=== PATIENT | male | born 1955 | race Caucasian/White ===

== ENCOUNTER 2023-11-12 11:52 | Inpatient (IN) | payer MEDICARE, SELFPAY ==
[2023-11-12 11:53] VITALS: BP 142/72; PULSE 80; RESP 18; TEMP 36.6; O2SAT 95
--- NOTE | 2023-11-12 12:16 | US_ITS ---
STUDY: SCROTUM ULTRASOUND REASON FOR EXAM: Male, 68 years old. testicular pain TECHNIQUE: Ultrasound evaluation of the scrotum was performed with color Doppler and static dangelo-scale imaging. COMPARISON: None. FINDINGS: RIGHT TESTICLE INTRATESTICULAR: There is a normal size of the right testicle. The right testicle measures 4.4 x 3.0 x 2.3 cm. There is a homogenous echotexture. There is normal arterial and normal venous vascularity. There is no demonstrated right testicular mass or cyst. EXTRATESTICULAR: The epididymis is normal in size. The epididymis head measures 1.3 cm. There is normal vascularity of the epididymis. There is no demonstrated epididymal cystic structure. There is no demonstrated hydrocele. There is no demonstrated varicocele. There is no demonstrated extratesticular mass or cyst. LEFT TESTICLE INTRATESTICULAR: There is a normal size of the left testicle. The left testicle measures 3.7 x 2.9 x 2.1 cm. There is a homogenous echotexture. There is normal arterial and normal venous vascularity. There is no demonstrated left testicular mass or cyst. EXTRATESTICULAR: The epididymis is normal in size. The epididymis head measures 1.5 cm. There is increased (hyperemic) vascularity of the epididymis. There is no demonstrated epididymal cystic structure. There is a small hydrocele. There is no demonstrated varicocele. There is no demonstrated extratesticular mass or cyst. US/Testicular with Arterial Flow IMPRESSION: Normal bilateral testicles, no sonographic evidence of intratesticular mass or torsion. Hyperemia on the left epididymis suggests epididymitis. Small left hydrocele Electronically Signed: Pavan Avila MD at 14:22 EDT ,
--- NOTE | 2023-11-12 12:39 | EX.ED.GUMALE ---
HPI <DENISE Waters - Last Filed: 11/12/23 16:12> History of Present Illness Chief Complaint: Male Pain/Injury Narrative Narrative: Patient is a 68-year-old male with history of dementia, hypertension hyperlipidemia who presents to the emergency department left-sided testicular pain and swelling. Patient states today, it started to be very painful to the touch, got more red and swollen. He states is significantly larger than the right testicle. Patient denies any fever or chills. Denies any difficulty urinating. [facility] <DENISE Waters - Last Filed: 11/12/23 16:12> [facility] Medical History (Updated 11/12/23 @ 16:12 by DENISE Waters) Dementia High cholesterol Hypertension Home Medications atorvastatin 40 mg tablet 40 mg PO QHS 11/12/23 [History Last Taken Unknown] donepezil 10 mg tablet 10 mg PO QHS 11/12/23 [History Last Taken Unknown] lisinopril 10 mg tablet 10 mg PO DAILY 11/12/23 [History Last Taken Unknown] memantine 5 mg tablet 5 mg PO QHS 11/12/23 [History Last Taken Unknown] Allergy/AdvReac Type Severity Reaction Status Date / Time No Known Allergies Allergy Verified 11/12/23 11:53 Social History Smoking Status: Never smoker ROS <DENISE Waters - Last Filed: 11/12/23 16:12> ROS ED ROS Narrative Constitutional: Negative for fever, chills, weight loss, weakness Eyes: Negative for vision loss, vision change, double vision ENT: Negative for any sore throat, ear pain, congestion Cardiovascular: Negative for any chest pain, tightness, palpitations Respiratory: Negative for any cough, sputum production, hemoptysis, dyspnea, dyspnea on exertion, orthopnea Gastrointestinal: Negative for any abdominal pain, nausea, vomiting, diarrhea, constipation, blood in stool, blood in vomit : Negative for any urinary frequency, dysuria, retention, blood in urine. Positive for left-sided testicular pain and swelling Muscle skeletal: Negative for any neck pain, back pain Neurological: Negative for any headache, syncope, dizziness Skin: Negative for any rashes, itching, abrasions, lacerations Psychiatric: Negative for any depression, anxiety, stress, suicidal ideation, homicidal ideation Hematologic: Negative for any excessive bruising, easy bleeding EXAM <Ridge AdameDENISE medel - Last Filed: 11/12/23 16:12> Physical Exam Narrative Exam Narrative: Vital signs reviewed. HEET: Head normocephalic atraumatic, TMs clear bilaterally. Posterior pharynx is clear, moist mucous membranes. Nares clear bilaterally. Neck: Supple with no lymphadenopathy or tenderness. No signs of meningismus. Cardiac: Regular rate and rhythm no murmurs gallops or rubs, equal peripheral pulses bilaterally. Respiratory: Lungs clear to auscultation bilaterally. No chest tenderness. Abdomen: Soft, nontender, nondistended. No abdominal bruit or pulsatile masses. No hepatosplenomegaly Extremities: No peripheral edema, no signs of gross trauma or deformity. Active full range of motion of all extremities. Neuro: Cranial nerves II through XII intact, no focal neurological deficits. Skin: Clean dry and intact with no rash, purpura, petechiae, vesicles or pustules. Backs/flank: No CVA tenderness, no midline spinal tenderness, no deformity. Psych: Normal mood and affect. No SI, HI or acute psychosis. Testicular: Testicular exam does show some erythema, tenderness to the left testicle. Patient does have 2 areas of pain, epididymis was tender. There is no significant cellulitis, no abscess formation, no evidence of any Kierra's gangrene. Const Vital Signs: 11/12/23 11:53 11/12/23 13:53 11/12/23 15:00 Temperature 97.8 F Temperature Source Temporal Pulse Rate 80 67 80 Respiratory Rate 18 16 16 Blood Pressure 142/72 H 124/69 H 140/70 H Blood Pressure Mean 95 87 93 Pulse Ox 95 95 99 Oxygen Delivery Method Room Air Room Air Room Air 11/12/23 16:18 Temperature 98.6 F Temperature Source Pulse Rate 70 Respiratory Rate 16 Blood Pressure 134/71 H Blood Pressure Mean 92 Pulse Ox 96 Oxygen Delivery Method <Dr. Hebert Degroot DO - Last Filed: 11/12/23 16:52> Physical Exam Const Vital Signs: 11/12/23 11:53 11/12/23 13:53 11/12/23 15:00 Temperature 97.8 F Temperature Source Temporal Pulse Rate 80 67 80 Respiratory Rate 18 16 16 Blood Pressure 142/72 H 124/69 H 140/70 H Blood Pressure Mean 95 87 93 Pulse Ox 95 95 99 Oxygen Delivery Method Room Air Room Air Room Air 11/12/23 16:18 Temperature 98.6 F Temperature Source Pulse Rate 70 Respiratory Rate 16 Blood Pressure 134/71 H Blood Pressure Mean 92 Pulse Ox 96 Oxygen Delivery Method [facility] <Ridge DavisDENISE - Last Filed: 11/12/23 16:12> [facility] Lab Data Labs: Laboratory Results - last 24 hr 11/12/23 11/12/23 11/12/23 12:42 12:50 15:15 WBC 22.1 H RBC 4.40 L Hgb 12.3 L Hct 37.8 L MCV 85.9 MCH 28.0 MCHC 32.5 RDW Std Deviation 41.1 RDW Coeff of Leila 13.2 Plt Count 279 MPV 8.6 Immature Gran % (Auto) 0.700 Neut % (Auto) 78.6 H Lymph % (Auto) 9.0 L [place] % (Auto) 11.2 H Eos % (Auto) 0.3 Baso % (Auto) 0.2 Absolute Neuts (auto) 17.3 H Absolute Lymphs (auto) 1.98 Nucleated RBC % 0 Differential Comment SCANNED Diff Path Review May foll Sodium 138 Potassium 3.9 Chloride 104 Carbon Dioxide 24.0 Anion Gap 10 BUN 12 Creatinine 0.83 Estim Creat Clear Calc 105.99 Est GFR (MDRD) Af Amer 119 Est GFR (MDRD) Non-Af 99 BUN/Creatinine Ratio 14.5 Glucose 104 Lactic Acid 1.3 Calcium 9.1 Total Bilirubin 0.70 AST 10 L ALT 28 Alkaline Phosphatase 86 Total Protein 7.1 Albumin 3.1 L Globulin 4.0 Albumin/Globulin Ratio 0.8 L Urine Color Yellow Urine Clarity Clear Urine pH 6.0 Ur Specific [place] 1.015 Urine Protein 15 H Urine Glucose (UA) Normal Urine Ketones Negative Urine Occult Blood 50 H Urine Nitrite Negative Urine Bilirubin Negative Urine Urobilinogen Normal Ur Leukocyte Esterase 500 H Urine RBC 0 SEEN Urine WBC 25-50 SEEN Ur Squamous Epith Cells 0 SEEN Urine Bacteria 1+ Urine Mucus 0 SEEN Radiography Diagnostic Testing: Clinical Impression(s) from Imaging Studies Abdomen/Pelvis CT 11/12/23 13:44 IMPRESSION: Simple left renal cyst, no specific follow-up needed. Scattered colonic diverticula, no CT evidence of acute diverticulitis. Enlarged prostate impinging upon the inferior bladder Diffuse fluid noted in the scrotum, please see dedicated testicular ultrasound for further evaluation Electronically Signed: Pavan Avila MD at 14:29 EDT , Treatment and Re-Evaluation Narrative: Differential diagnosis includes however is not limited to: Kierra's gangrene, cellulitis, Epididymitis, hernia, STD Patient appears to be in no obvious respiratory distress. Patient vital signs are stable, patient appears nontoxic. Presenting to the emergency department with left-sided testicular pain. Patient does have pain on palpation. Patient will receive some basic laboratory values, urinalysis as well as a testicular ultrasound. Patient was given oxycodone for pain. All radiologic examinations were read, reviewed by the emergency department attending. From these reads, a plan of care will be put in place. Patient's CBC was positive for leukocytosis, white blood count 22,000, chemistries were unremarkable, creatinine within normal limits. Lactic acid was negative. 2 sets of blood cultures will be ordered. Patient's urinalysis was positive for urinary tract infection, 1+ bacteria 25-50 white blood cells, 500 leukocytes, this is consistent with a UTI as well. Urine culture will be sent. Patient was started on IV vancomycin, IV Zosyn. Patient's impression of the ultrasound shows normal bilateral testicles, no sonographic evidence of entered testicular mass or torsion. Hyperemia on the left epididymis suggesting of epididymitis. Small left hydrocele. Patient CT scan of the abdomen pelvis showed simple left renal cyst, scattered colonic diverticula, enlarged prostate, diffuse fluid noted in the scrotum. Patient on reevaluation, patient will be started IV antibiotics, patient will be admitted to the hospital. I spoke with hospitalist, they are agreement. All questions answered, stable for admission. <Dr. Hebert Degroot, DO - Last Filed: 11/12/23 16:52> [facility] Narrative Medical decision making narrative: Differential diagnosis includes however is not limited to: Kierra's gangrene, cellulitis, Epididymitis, hernia, STD Patient appears to be in no obvious respiratory distress. Patient vital signs are stable, patient appears nontoxic. Presenting to the emergency department with left-sided testicular pain. Patient does have pain on palpation. Patient will receive some basic laboratory values, urinalysis as well as a testicular ultrasound. Patient was given oxycodone for pain. All radiologic examinations were read, reviewed by the emergency department attending. From these reads, a plan of care will be put in place. Patient's CBC was positive for leukocytosis, white blood count 22,000, chemistries were unremarkable, creatinine within normal limits. Lactic acid was negative. 2 sets of blood cultures will be ordered. Patient's urinalysis was positive for urinary tract infection, 1+ bacteria 25-50 white blood cells, 500 leukocytes, this is consistent with a UTI as well. Urine culture will be sent. Patient was started on IV vancomycin, IV Zosyn. Patient's impression of the ultrasound shows normal bilateral testicles, no sonographic evidence of entered testicular mass or torsion. Hyperemia on the left epididymis suggesting of epididymitis. Small left hydrocele. Patient CT scan of the abdomen pelvis showed simple left renal cyst, scattered colonic diverticula, enlarged prostate, diffuse fluid noted in the scrotum. Patient on reevaluation, patient will be started IV antibiotics, patient will be admitted to the hospital. I spoke with hospitalist, they are agreement. All questions answered, stable for admission. This patient was seen with a PA/ROCK WORKER Individually assessed they patient including history and physical. I have reviewed everything on the chart that is available and agree with the documentation provided by the PA/ROCK WORKER including discussion about the assessment, treatment plan, discussion, and return precautions. Well-appearing 68-year-old male with dementia presenting with left-sided testicular pain. Last time his saw his testicles was about 2 weeks ago. Minimally tender on palpation. No crepitance palpated. Lab work was obtained and shows a leukocytosis of 22,000. Urinalysis consistent with UTI labs concern for scrotal cellulitis and the differential as above. Ultrasound did not show any torsion. CT of the ab pelvis with IV contrast shows some inflammation of the testicle and fluid in the scrotum. Given this we covered with broad-spectrum antibiotics and discussed with the hospitalist given his white count of 20,000. Lab Data Attestation: I reviewed the patient's lab results. Labs: Laboratory Results - last 24 hr 11/12/23 11/12/23 11/12/23 12:42 12:50 15:15 WBC 22.1 H RBC 4.40 L Hgb 12.3 L Hct 37.8 L MCV 85.9 MCH 28.0 MCHC 32.5 RDW Std Deviation 41.1 RDW Coeff of Leila 13.2 Plt Count 279 MPV 8.6 Immature Gran % (Auto) 0.700 Neut % (Auto) 78.6 H Lymph % (Auto) 9.0 L [place] % (Auto) 11.2 H Eos % (Auto) 0.3 Baso % (Auto) 0.2 Absolute Neuts (auto) 17.3 H Absolute Lymphs (auto) 1.98 Nucleated RBC % 0 Differential Comment SCANNED Diff Path Review November foll Sodium 138 Potassium 3.9 Chloride 104 Carbon Dioxide 24.0 Anion Gap 10 BUN 12 Creatinine 0.83 Estim Creat Clear Calc 105.99 Est GFR (MDRD) Af Amer 119 Est GFR (MDRD) Non-Af 99 BUN/Creatinine Ratio 14.5 Glucose 104 Lactic Acid 1.3 Calcium 9.1 Total Bilirubin 0.70 AST 10 L ALT 28 Alkaline Phosphatase 86 Total Protein 7.1 Albumin 3.1 L Globulin 4.0 Albumin/Globulin Ratio 0.8 L Urine Color Yellow Urine Clarity Clear Urine pH 6.0 Ur Specific [place] 1.015 Urine Protein 15 H Urine Glucose (UA) Normal Urine Ketones Negative Urine Occult Blood 50 H Urine Nitrite Negative Urine Bilirubin Negative Urine Urobilinogen Normal Ur Leukocyte Esterase 500 H Urine RBC 0 SEEN Urine WBC 25-50 SEEN Ur Squamous Epith Cells 0 SEEN Urine Bacteria 1+ Urine Mucus 0 SEEN Radiography Diagnostic Testing: Clinical Impression(s) from Imaging Studies Abdomen/Pelvis CT 11/12/23 13:44 IMPRESSION: Simple left renal cyst, no specific follow-up needed. Scattered colonic diverticula, no CT evidence of acute diverticulitis. Enlarged prostate impinging upon the inferior bladder Diffuse fluid noted in the scrotum, please see dedicated testicular ultrasound for further evaluation Electronically Signed: Pavan Avila MD at 14:29 EDT , Discharge Plan Dx/Rx/DC Orders Clinical Impression: Cellulitis of scrotum, Acute epididymitis, Leukocytosis, Acute UTI Disposition Disposition: [facility]
[2023-11-12] MEDS: Oxycodone/Apap 5/325 Tablet PO (12:43)
[2023-11-12 12:50] LABS: Absolute Lymphocyte Count 1.98 X10^3/uL (0.83-4.51); Absolute Neutrophil Count 17.3 X10^3/uL (2.0-7.7); Basophil# 0.05 X10^3/uL; Basophil% 0.2 % (0-1); Eosinophil# 0.07 X10^3/uL; Eosinophils% 0.3 % (0-5); Hematocrit 37.8 % (40-54); Hemoglobin 12.3 g/dL (13.0-16.5); Lymphocyte # 1.98 X10^3/ul (0.83-4.51); Mean Corp Hgb Conc 32.5 g/dL (32-36); Mean Corpuscular Volume 85.9 fL (80-94); Mean Platelet Vol. 8.6 fl (6.2-12.0); Monocyte# 2.48 X10^3/uL; Monocyte% 11.2 % (0-10); NRBC Flagged by Analyzer 0 % (0-5); Neutrophil # 17.33 X10^3/uL (2.7-7.7); Neutrophil % 78.6 % (47-70); POSITIVE DIFFERENTIAL YES; Platelet Count 279 K/mm3 (150-450); RBC Distribution Width CV 13.2 % (11.6-14.6); RBC Distribution Width SD 41.1 fl (35.1-43.9); White Blood Count 22.1 K/mm3 (4.4-11.0)
[2023-11-12 12:58] LABS: Differential Indicated SCAN CRITERIA MET
[2023-11-12 13:01] LABS: Mucous, Urine 0 SEEN /hpf (<or=2+); Red Blood Cells-Urine 0 SEEN /hpf (0-5); Squamous Epithelial Cells - UA 0 SEEN /hpf (0-5)
[2023-11-12 13:02] LABS: Color, Urine Yellow (Yellow); Glucose, Dipstick Normal (Normal); Ketone-Dipstick Negative (Negative); Leukocyte Esterase-Dipstick 500 /ul (Negative); Nitrite-Dipstick Negative (Negative); Occult Blood-Urine 50 /ul (Negative); Protein-Dipstick 15 mg/dl (Negative); Specific Gravity, Urine 1.015 (1.002-1.030); Urine Bilirubin Dipstick Negative (Negative); Urine Clarity Clear (Clear); Urine Urobilinogen Normal (Normal)
[2023-11-12 13:06] LABS: ALB/GLOB Ratio 0.8 RATIO (0.9-2.4); AST(SGOT) 10 U/L (15-37); Alanine Aminotransfer ALT/SGPT 28 U/L (16-61); Albumin, Serum 3.1 g/dL (3.2-5.0); Alkaline Phosphatase 86 U/L (45-117); Anion Gap 10 (5-15); BUN 12 mg/dL (7-18); BUN/Creat Ratio 14.5 RATIO (10-20); Calcium,Total 9.1 mg/dL (8.5-10.1); Chloride 104 mmol/L (98-107); Creatinine, Serum 0.83 mg/dL (0.70-1.30); EST Glomerular Filtration Rate 99 mL/min (>60); Est Glom Filt Rate - Afr Amer 119 mL/min (>60); Estimated Creatinine Clearance 105.99 ml/min; Glucose 104 mg/dL (74-106); Potassium 3.9 mmol/L (3.5-5.1); Protein, Total 7.1 g/dL (6.4-8.2); Sodium Level 138 mmol/L (136-145)
[2023-11-12 13:14] LABS: Bacteria 1+ /hpf (None Seen); White Blood Cells 25-50 SEEN /hpf (0-5)
[2023-11-12 13:16] LABS: Differential Comment SCANNED
--- NOTE | 2023-11-12 13:44 | CT_ITS ---
STUDY: CT ABDOMEN AND PELVIS WITH CONTRAST REASON FOR EXAM: Male, 68 years old. Diffuse abdominal pain RADIATION DOSAGE (If Supplied By Facility): CTDIvol = ( 16.22 ) mGy, DLP = ( 1489.64 ) mGycm TECHNIQUE: Transaxial images were obtained from the dome of the diaphragm to the symphysis pubis without oral contrast. IV 100mL Isovue-370 was administered. Sagittal and coronal images were reconstructed. Individualized dose optimization techniques were used for this CT. COMPARISON: None. FINDINGS: The visualized lung bases are unremarkable. The visualized portions of the heart are within normal limits. Normal liver. Normal gallbladder and extrahepatic biliary system. Normal spleen. Normal pancreas. Normal bilateral adrenal glands. No obstructive uropathy, or suspicious solid renal lesion, there is a simple 2 cm left renal cyst. Normal visualized stomach. Normal small intestine. There are multiple colonic diverticula consistent with diverticulosis. There is non-visualization of the appendix. There is diffuse atherosclerotic calcification of the abdominal aorta, without a demonstrated aneurysm. Normal inferior vena cava. Normal retroperitoneum. There is an enlarged prostate which is impinging upon the inferior aspect of the bladder. The prostate contains multiple calcifications suggesting chronic prostatitis. Prostate measures approximately 5.2 x 5.9 x 6.1 cm. Low-density fluid noted in both halves of the scrotum more prominent on the right than the left. Patient underwent testicular ultrasound earlier today. Please see that dictation for further discussion Small fat-containing inguinal hernias. There are diffuse degenerative changes of the visualized lumbar spine, and pelvis. CT/Abdomen/Pelvis W IV Cont ONLY IMPRESSION: Simple left renal cyst, no specific follow-up needed. Scattered colonic diverticula, no CT evidence of acute diverticulitis. Enlarged prostate impinging upon the inferior bladder Diffuse fluid noted in the scrotum, please see dedicated testicular ultrasound for further evaluation Electronically Signed: Pavan Avila MD at 14:29 EDT ,
[2023-11-12 13:53] VITALS: BP 124/69; PULSE 67; RESP 16; O2SAT 95
[2023-11-12 15:00] VITALS: BP 140/70; PULSE 80; RESP 16; O2SAT 99
[2023-11-12 15:52] LABS: Lactic Acid 1.3 mmol/L (0.4-1.9)
[2023-11-12] MEDS: Piperacil/Tazobactam 3.375 GM in 0.9% Normal Saline (50mL MB+) 50 ML IV (16:14)
[2023-11-12 16:18] VITALS: BP 134/71; PULSE 70; RESP 16; TEMP 37; O2SAT 96
--- NOTE | 2023-11-12 16:26 | HP.PCM.HOS_ITS ---
HPI - General General Date of Admission: 11/12/23 Date of Service: 11/12/23 Chief Complaint: Acute epididymitis HPI Narrative MARIBETH COLEMAN, is a 68 M with past medical history of mild dementia, hypertension, obesity presents to the ED with concerns regarding left scrotal pain which is progressive since the last 1 month but extremely severe since this morning. The pain is worsened after mild physical contact or lifting the scrotum. Per the , they are not sexually active, no risk factors for STI He underwent CT scan and ultrasound and the ED and imaging findings are suggestive of epi diabetes mellitus. Given his acute presentation ED is concerned regarding cellulitis/ possible risk of progressing to Kierra's gangrene. For this reason he is being admitted for observation overnight. [facility] Medical History (Updated 11/12/23 @ 16:12 by DENISE Waters) Dementia High cholesterol Hypertension Home Medications atorvastatin 40 mg tablet 40 mg PO QHS 11/12/23 [History Last Taken Unknown] donepezil 10 mg tablet 10 mg PO QHS 11/12/23 [History Last Taken Unknown] lisinopril 10 mg tablet 10 mg PO DAILY 11/12/23 [History Last Taken Unknown] memantine 5 mg tablet 5 mg PO QHS 11/12/23 [History Last Taken Unknown] Allergy/AdvReac Type Severity Reaction Status Date / Time No Known Allergies Allergy Verified 11/12/23 11:53 Social History Smoking Status: Never smoker ROS Review of Systems ROS Unobtainable: Denies due to encephalopathy, due to endotracheal tube, due to mental condition, due to mental status or other Constitutional Constitutional: Reports chills; Denies anorexia, change in weight, fatigue, fever(s), malaise, night sweats, weakness or other Eyes Eyes: Denies blurry vision, change in eye color, change in vision, discharge fro m eye(s), double vision, erythema, eye pain, loss of vision or other ENT HEENT: Denies abnormal hearing, dysphagia, ear pain, epistaxis, headache(s), h earing loss, nasal congestion, nasal discharge, post nasal drip, sinus pressure, sore throat or other Cardiovascular Cardiovascular: Denies chest pain, claudication, dyspnea on exertion, edema, lightheadedness, orthopnea, palpitations, paroxysmal nocturnal dyspnea, rapid heart rate, syncope or other Respiratory/Chest Respiratory/Chest: Denies cough, dyspnea, excessive phlegm production, hemoptysis, productive cough, shortness of breath at rest, shortness of breath with exertion, wheezing or other Gastrointestinal Gastrointestinal: Denies abdominal pain, coffee ground emesis, constipation, diarrhea, dyspepsia, hematemesis, hematochezia, loose stools, melena, nausea, vomiting or other Genitourinary Genitourinary: Reports urinary frequency and urinary hesitancy Musculoskeletal Musculoskeletal: Denies arthralgias, back pain, joint pain, joint stiffness, joint swelling, myalgias, neck pain or other Neurologic Neurologic: Denies abnormal gait, abnormal speech, confusion, disequilibrium, dizziness, focal weakness, headache(s), numbness, paresthesias, seizure-like activity, seizures, syncope, tingling, tremor(s) or other Psychiatric Psychiatric: Denies anxiety, depression, homicidal ideation, suicidal ideation or other Endocrine Endocrinology: Denies change in body appearance, cold intolerance, excessive sweating, heat intolerance, polydipsia, polyuria or other Hematologic/Lymphatic Hematologic/Lymphatic: Denies anemia, easy bleeding, easy bruising, lymphadenopathy or other Vital Signs Vital Signs Vital Signs: 11/12/23 11:53 11/12/23 13:53 11/12/23 15:00 Temperature 97.8 F Temperature Source Temporal Pulse Rate 80 67 80 Respiratory Rate 18 16 16 Blood Pressure 142/72 H 124/69 H 140/70 H Blood Pressure Mean 95 87 93 Pulse Ox 95 95 99 Oxygen Delivery Method Room Air Room Air Room Air 11/12/23 16:18 Temperature 98.6 F Temperature Source Pulse Rate 70 Respiratory Rate 16 Blood Pressure 134/71 H Blood Pressure Mean 92 Pulse Ox 96 Oxygen Delivery Method Weight Weight: 221 lb 9.6 oz Body Mass Index (BMI) 30.0 Physical Exam Narrative Scrotal examination: Right scrotum normal skin healthy, left scrotum inflamed with pain over left testicle and pain is relieved by lifting the scrotum. Const alert, oriented x3, no apparent distress and healthy appearing HEENT normocephalic and head/scalp atraumatic Eyes PERRL Neck no lymphadenopathy Resp normal respiratory effort Cardio regular rate and regular rhythm GI normal to inspection, nondistended, normoactive bowel sounds Auscultation: hyperactive bowel sounds Extremity normal to inspection Neuro oriented x3 Coordination / Balance: [id number] test normal Results Medical Records Data Attestation: I reviewed the patient's medical records Lab / Micro Data Attestation: I reviewed the patient's lab results. 11/12/23 12:42 11/12/23 12:42 Labs: Laboratory Results - last 24 hr 11/12/23 12:42: WBC 22.1 H, RBC 4.40 L, Hgb 12.3 L, Hct 37.8 L, MCV 85.9, MCH 28.0, MCHC 32.5, RDW Std Deviation 41.1, RDW Coeff of Leila 13.2, Plt Count 279, MPV 8.6, Immature Gran % (Auto) 0.700, Neut % (Auto) 78.6 H, Lymph % (Auto) 9.0 L, [place] % (Auto) 11.2 H, Eos % (Auto) 0.3, Baso % (Auto) 0.2, Absolute Neuts (auto) 17.3 H, Absolute Lymphs (auto) 1.98, Nucleated RBC % 0, Differential Comment SCANNED, Diff Path Review November, Sodium 138, Potassium 3.9, Chloride 104, Carbon Dioxide 24.0, Anion Gap 10, BUN 12, Creatinine 0.83, Estim Creat Clear Calc 105.99, Est GFR (MDRD) Af Amer 119, Est GFR (MDRD) Non-Af 99, BUN/Creatinine Ratio 14.5, Glucose 104, Calcium 9.1, Total Bilirubin 0.70, AST 10 L, ALT 28, Alkaline Phosphatase 86, Total Protein 7.1, Albumin 3.1 L, Globulin 4.0, Albumin/Globulin Ratio 0.8 L 11/12/23 12:50: Urine Color Yellow, Urine Clarity Clear, Urine pH 6.0, Ur Spe cific [place] 1.015, Urine Protein 15 H, Urine Glucose (UA) Normal, Urine Ket ones Negative, Urine Occult Blood 50 H, Urine Nitrite Negative, Urine Bilirubin Negative, Urine Urobilinogen Normal, Ur Leukocyte Esterase 500 H, Urine RBC 0 SEEN, Urine WBC 25-50 SEEN, Ur Squamous Epith Cells 0 SEEN, Urine Bacteria 1+, Urine Mucus 0 SEEN 11/12/23 15:15: Lactic Acid 1.3 ABG Data Attestation: I personally reviewed and interpreted this ABG as follows: Imaging Radiology Impression Abdomen/Pelvis CT 11/12/23 13:44 IMPRESSION: Simple left renal cyst, no specific follow-up needed. Scattered colonic diverticula, no CT evidence of acute diverticulitis. Enlarged prostate impinging upon the inferior bladder Diffuse fluid noted in the scrotum, please see dedicated testicular ultrasound for further evaluation Electronically Signed: Pavan Avila MD at 14:29 EDT , Assessment & Plan Assessment/Plan (1) Acute epididymitis: PLAN: Plan 68-year-old gentleman with a history of hypertension, dementia, dyslipidemia presents to the ED with concerns regarding left scrotal pain which on evaluation is consistent with epididymitis . He was started on Vanco Zosyn in the ED, we will transition to IV ceftriaxone, he is not sexually active and there is no risk of STI. If remains afebrile and pain is controlled can be transition to oral antibiotics tomorrow morning can be discharged. #Epididymitis: -Received Vanco and Zosyn in the ED -Changed to IV ceftriaxone tomorrow -Is afebrile and pain improves can be transition to oral antibiotics #Urinary tract infection: 24-50 WBCs present urine nitrate positive -Urine cultures -Continue antibiotics as above. #Dyslipidemia continue atorvastatin 40 #Dementia continue donepezil 10 mg daily #Hypertension lisinopril 10 mg daily memantine 5 mg daily #DVT risk low encourage mobilization left scrotal pain
[2023-11-12] MEDS: Vancomycin HCl 2,000 MG in 0.9% Normal Saline (500mL Bag) 500 ML 250 MG IV (16:58)
[2023-11-12 17:26] VITALS: BP 132/72; PULSE 70; RESP 16; TEMP 36.9; O2SAT 97
[2023-11-12] MEDS: Donepezil HCl 10 MG Tablet PO (21:52)
[2023-11-12] MEDS: Memantine Hydrochloride 5 MG Tablet PO (21:52)
[2023-11-12] MEDS: Atorvastatin Calcium 40 MG Tablet PO (21:52)
[2023-11-12 21:58] VITALS: BP 131/66; PULSE 74; RESP 16; TEMP 37; O2SAT 94
[2023-11-13 01:50] VITALS: BP 116/72; PULSE 71; RESP 16; TEMP 37; O2SAT 93
[2023-11-13] MEDS: Ketorolac 15 MG/ML Vial IV ×4 (01:51→23:38)
[2023-11-13 06:00] VITALS: BP 113/69; PULSE 65; RESP 16; TEMP 37.2; O2SAT 96
[2023-11-13 06:24] LABS: Absolute Lymphocyte Count 2.19 X10^3/uL (0.83-4.51); Absolute Neutrophil Count 15.1 X10^3/uL (2.0-7.7); Basophil# 0.08 X10^3/uL; Basophil% 0.4 % (0-1); Eosinophil# 0.17 X10^3/uL; Eosinophils% 0.9 % (0-5); Hematocrit 36.1 % (40-54); Hemoglobin 11.5 g/dL (13.0-16.5); Lymphocyte # 2.19 X10^3/ul (0.83-4.51); Mean Corp Hgb Conc 31.9 g/dL (32-36); Mean Corpuscular Volume 87.8 fL (80-94); Mean Platelet Vol. 8.7 fl (6.2-12.0); Monocyte# 2.22 X10^3/uL; Monocyte% 11.1 % (0-10); NRBC Flagged by Analyzer 0 % (0-5); Neutrophil % 75.5 % (47-70); POSITIVE DIFFERENTIAL YES; Platelet Count 256 K/mm3 (150-450); RBC Distribution Width CV 13.3 % (11.6-14.6); RBC Distribution Width SD 42.6 fl (35.1-43.9); Red Blood Count 4.11 M/mm3 (4.6-6.2)
[2023-11-13 06:59] LABS: Differential Indicated SCAN CRITERIA MET
[2023-11-13 07:00] LABS: Differential Comment SCANNED
[2023-11-13 08:01] VITALS: BP 118/71; PULSE 68; RESP 18; TEMP 37.3; O2SAT 97
[2023-11-13] MEDS: Lisinopril 10 MG Tablet PO (11:00)
[2023-11-13] MEDS: Ceftriaxone 1 GM/50 ML BAG IV (11:01)
--- NOTE | 2023-11-13 11:26 | PCM.PN.HOSP ---
Reason for Visit Reason for Visit: Diagnoses Epididymitis (11/12/23) Subjective Subjective Patient was admitted yesterday afternoon with acute epididymitis and scrotal pain. Seen at bedside this morning, present. Patient states that his pain when laying down is moderately improved today. He does continue to have fairly significant pain with standing and ambulation. He feels like the swelling has mildly improved but the left testicle remains quite swollen. He denies any fevers or chills. Patient does states that he has had some BPH type symptoms over the past few months. Has never been on Flomax before. Has had his PSA checked fairly regularly and it has never been an issue. No other acute concerns this morning. Objective Data Objective Data Vital Signs: Vital Signs Temp Pulse Resp BP Pulse Ox O2 Del Method 99.2 F H 68 18 118/71 97 Room Air 11/13/23 08:01 11/13/23 08:01 11/13/23 08:01 11/13/23 08:01 11/13/23 08:01 11/13/23 08:01 Oxygen Delivery Method Room Air Weight: 100.516 kg Body Mass Index (BMI) 30.0 Intake & Output: Intake and Output for Last 24 Hours 11/11/23 11/12/23 11/13/23 23:59 23:59 23:59 Intake Total 590 / 790 720 / 720 Balance 590 / 790 720 / 720 Lab / Micro Data 11/13/23 05:40 11/12/23 12:42 Labs: Laboratory Results - last 24 hr 11/12/23 12:42: WBC 22.1 H, RBC 4.40 L, Hgb 12.3 L, Hct 37.8 L, MCV 85.9, MCH 28.0, MCHC 32.5, RDW Std Deviation 41.1, RDW Coeff of Leila 13.2, Plt Count 279, MPV 8.6, Immature Gran % (Auto) 0.700, Neut % (Auto) 78.6 H, Lymph % (Auto) 9.0 L, Travis % (Auto) 11.2 H, Eos % (Auto) 0.3, Baso % (Auto) 0.2, Absolute Neuts (auto) 17.3 H, Absolute Lymphs (auto) 1.98, Nucleated RBC % 0, Differential Comment SCANNED, Diff Path Review November, Sodium 138, Potassium 3.9, Chloride 104, Carbon Dioxide 24.0, Anion Gap 10, BUN 12, Creatinine 0.83, Estim Creat Clear Calc 105.99, Est GFR (MDRD) Af Amer 119, Est GFR (MDRD) Non-Af 99, BUN/Creatinine Ratio 14.5, Glucose 104, Calcium 9.1, Total Bilirubin 0.70, AST 10 L, ALT 28, Alkaline Phosphatase 86, Total Protein 7.1, Albumin 3.1 L, Globulin 4.0, Albumin/Globulin Ratio 0.8 L 11/12/23 12:50: Urine Color Yellow, Urine Clarity Clear, Urine pH 6.0, Ur Specific [place] 1.015, Urine Protein 15 H, Urine Glucose (UA) Normal, Urine Ketones Negative, Urine Occult Blood 50 H, Urine Nitrite Negative, Urine Bilirubin Negative, Urine Urobilinogen Normal, Ur Leukocyte Esterase 500 H, Urine RBC 0 SEEN, Urine WBC 25-50 SEEN, Ur Squamous Epith Cells 0 SEEN, Urine Bacteria 1+, Urine Mucus 0 SEEN 11/12/23 15:15: Lactic Acid 1.3 11/13/23 05:40: WBC 20.0 H, RBC 4.11 L, Hgb 11.5 L, Hct 36.1 L, MCV 87.8, MCH 28.0, MCHC 31.9 L, RDW Std Deviation 42.6, RDW Coeff of Leila 13.3, Plt Count 256, MPV 8.7, Immature Gran % (Auto) 1.100 H, Neut % (Auto) 75.5 H, Lymph % (Auto) 11.0 L, Travis % (Auto) 11.1 H, Eos % (Auto) 0.9, Baso % (Auto) 0.4, Absolute Neuts (auto) 15.1 H, Absolute Lymphs (auto) 2.19, Nucleated RBC % 0, Differential Comment SCANNED, Diff Path Review November foll Micro: Microbiology 11/12/23 12:50 Urine, Clean Catch Urine Culture - Preliminary Presumptive E. coli Radiography Diagnostic Testing: Radiology Impression Testicular Ultrasound 11/12/23 12:16 IMPRESSION: Normal bilateral testicles, no sonographic evidence of intratesticular mass or torsion. Hyperemia on the left epididymis suggests epididymitis. Small left hydrocele Electronically Signed: Pavan Avila MD at 14:22 EDT , Abdomen/Pelvis CT 11/12/23 13:44 IMPRESSION: Simple left renal cyst, no specific follow-up needed. Scattered colonic diverticula, no CT evidence of acute diverticulitis. Enlarged prostate impinging upon the inferior bladder Diffuse fluid noted in the scrotum, please see dedicated testicular ultrasound for further evaluation Electronically Signed: Pavan Avila MD at 14:29 EDT , Physical Exam Const alert, oriented x3 and no apparent distress Constitutional Narrative: Pleasant elderly male, obese, laying comfortably in bed, conversing normally, no acute distress. General Appearance: cooperative HEENT normocephalic, head/scalp atraumatic, hearing grossly normal bilaterally, nasal mucous membranes and turbinates normal and moist oral mucous membranes Eyes PERRL, EOMs intact bilaterally and conjunctivae normal Neck full ROM Chest inspection of chest normal Resp normal respiratory effort, normal air movement, no use of accessory muscles and clear to auscultation bilaterally Cardio regular rate, regular rhythm, no murmurs and peripheral pulses 2+ throughout GI normal to inspection, nondistended, normoactive bowel sounds, soft to palpation, non-tender and non-distended Scrotum: scrotal swelling Testes: testicular swelling left and testicular tenderness left Back/Spine normal ROM Extremity normal to inspection, full ROM and no pedal edema Skin no rashes or lesions noted Neuro no focal motor deficits and no sensory deficits noted Speech: speech normal Psych mental status grossly normal Assessment & Plan Assessment/Plan (1) Acute epididymitis: (2) Acute UTI: (3) Anemia: PLAN: Plan Patient is a 68-year-old male who presented [facility] ED on 11/12/2023 with worsening left scrotal pain. 1. Acute left sided epididymitis, concern for UTI, presumed BPH with obstructive symptoms, small left hydrocele Presented with worsening left-sided scrotal pain and swelling. CT abdomen pelvis with IV contrast showed diffuse fluid noted in the scrotum, enlarged prostate impinging upon the inferior bladder, otherwise nonacute. Testicular ultrasound showed hyperemia on left epididymis suggesting epididymitis, normal testicles, small left hydrocele. WBC count 22 on admit, otherwise afebrile and hemodynamically stable on room air. UA showed 500 leukocyte esterase, negative nitrates, 1+ bacteria. Urine culture growing 1-10K E coli, sensitivities pending. Blood cultures pending. Patient notably not sexually active, STI testing not done. ? Patient has had some improvement on IV antibiotics, continue IV ceftriaxone for now. Follow-up urine culture sensitivities and blood cultures. Will plan for 10-day course of antibiotics total. If patient continues to show improvement tomorrow, will likely be okay for discharge home. Treat with IV Toradol through tomorrow for scrotal pain, then likely short course of naproxen on discharge. Will start tamsulosin for presumed BPH. 2. Anemia ? Hemoglobin 12.3 on admit, decreased to 11.5 on hospital day 2. No previous baseline noted. Follow-up CBC tomorrow. Will obtain iron studies, B12 and folate for further workup. Chronic medical conditions: ? Obesity: BMI 30 on admit. Encouraged lifestyle modifications. Complicates hospital course, care and prognosis. ? Mild dementia: Stable. Continue home donepezil and memantine. ? Hyperlipidemia: Continue home atorvastatin. ? Hypertension: Continue home lisinopril. DVT prophylaxis: Lovenox CODE STATUS: Full code, verified Expected disposition: Home, 1 to 2 days ? Patient notably was admitted under observation status. Patient has acute epididymitis with significant scrotal pain, mildly improved for admission but patient will certainly benefit from further IV antibiotics and IV pain medication. Thus, will change patient to inpatient status. Total clinical time spent by myself addressing the patient's medical issues, reviewing all the data, and collaborating with patient's care team: 35 minutes. Charges/Coding Visit Charges Inpatient E&M: 36470 Subs Hosp L2
--- NOTE | 2023-11-13 13:00 | CASEMGMT ---
RN?CM?COST CONSULTANT?CM?to room to meet with patient for initial transition planning/care coordination?assessment.?RN?CM?introduced self and role at [facility].? Pt voices understanding and consents to?assessment?at this time.? Pt resting in bed in no distress at this time.? Pt is alert at this time and able to answer most questions. Pt does have history of dementia and there were a few things he was unable to recall and states his will be able to answers those things. Care providers, pharmacy, and demographics verified/updated at this time. PCP: Dr Christianson is listed as PCP. Pt states that he is his 's PCP, stating, I don't have a doctor. He then stated, You'll have to ask my . Specialists: States his will know this info. Preferred Pharmacy: Wants his to make this decision for any meds @ dc Insurance: [employer] Prescription Benefit:?yes LNOK: , Lakeisha Living Arrangements: Lives w/his in split-level home. States he is independent w/ADL's and manages his medications/appts. Transportation:?Pt states he drives very short distances only. provides most transportation. DME: ? Denies using any DME and denies needs.? HHC/SNF: No hx of either. Dasia, MS3 RN LORETO, made aware of the above and will f/u w/ re: info pt was unable to provide and if therapy evals are needed. PLAN:??TBD. Ricardo BSN?RN?CM
[2023-11-13 13:48] LABS: Pathologist Review Reviewed
[2023-11-13 13:50] LABS: Pathologist Review Reviewed
[2023-11-13] MEDS: 0.9% Saline Lock 10 ML Syringe IV ×3 (13:50→23:38)
[2023-11-13 14:36] LABS: Vitamin B12 252 pg/mL (211-911)
[2023-11-13 15:16] LABS: Ferritin 240 ng/mL (26-388); Iron 18 ug/dL (65-175); Iron Binding Capacity,Total 292 ug/dL (250-450); PERCENT IRON SATURATION 6.2 % (15.0-55.0)
[2023-11-13] MEDS: Tamsulosin HCl 0.4 MG Capsule PO (18:11)
[2023-11-13 20:50] VITALS: BP 145/92; PULSE 67; RESP 16; TEMP 36.6; O2SAT 97
[2023-11-13] MEDS: Memantine Hydrochloride 5 MG Tablet PO (21:18)
[2023-11-13] MEDS: Donepezil HCl 10 MG Tablet PO (21:18)
[2023-11-13] MEDS: Atorvastatin Calcium 40 MG Tablet PO (21:18)
[2023-11-14 02:50] VITALS: BP 128/74; PULSE 68; RESP 16; TEMP 36.6; O2SAT 96
[2023-11-14] MEDS: 0.9% Saline Lock 10 ML Syringe IV ×2 (05:21→09:12)
[2023-11-14] MEDS: Ketorolac 15 MG/ML Vial IV (05:21)
[2023-11-14 07:10] LABS: Hematocrit 36.1 % (40-54); Hemoglobin 11.8 g/dL (13.0-16.5); Mean Corp Hgb Conc 32.7 g/dL (32-36); Mean Corpuscular Hgb 28.3 pg (27.0-32.0); Mean Corpuscular Volume 86.6 fL (80-94); Mean Platelet Vol. 8.4 fl (6.2-12.0); Platelet Count 262 K/mm3 (150-450); RBC Distribution Width CV 13.2 % (11.6-14.6); RBC Distribution Width SD 41.3 fl (35.1-43.9); Red Blood Count 4.17 M/mm3 (4.6-6.2); White Blood Count 16.3 K/mm3 (4.4-11.0)
[2023-11-14 07:43] LABS: Anion Gap 6 (5-15); BUN 22 mg/dL (7-18); BUN/Creat Ratio 29.1 RATIO (10-20); Calcium,Total 9.3 mg/dL (8.5-10.1); Chloride 108 mmol/L (98-107); Creatinine, Serum 0.76 mg/dL (0.70-1.30); EST Glomerular Filtration Rate 109 mL/min (>60); Est Glom Filt Rate - Afr Amer 132 mL/min (>60); Estimated Creatinine Clearance 109.96 ml/min; Glucose 103 mg/dL (74-106); Sodium Level 138 mmol/L (136-145)
[2023-11-14 08:48] VITALS: BP 118/65; PULSE 74; RESP 16; TEMP 36.6; O2SAT 95
[2023-11-14] MEDS: Ceftriaxone 1 GM/50 ML BAG IV (09:07)
[2023-11-14] MEDS: Lisinopril 10 MG Tablet PO (09:07)
[2023-11-14] MEDS: Enoxaparin 40 MG/0.4 ML Syringe SC (09:11)
--- NOTE | 2023-11-14 09:51 | CASEMGMT ---
TC to pt Lakeisha, she states she would prefer the pharmacy be [facility] in [place], changed. She did verify pt PCP. She denies any needs at home. She is aware that the physician will be in touch with her and pt will be dc'd today. She plans to be in at lunchtime. Spoke with pt nurse yesterday regarding pt 6 clicks, she states pt is up and indep and she will redo 6 clicks. No therapy warranted.
--- NOTE | 2023-11-14 09:52 | DCINST_ITS ---
Discharge Instructions Diet Discharge Diet: No restrictions Activity Discharge Activity: No Restrictions Weight Bearing Status: Full weight bearing Follow Up Care Test Results: Test results from this visit will be discussed in further detail at your follow- up appointment, if applicable. Discharge Plan Admission Admit Date/Time: 11/13/23 15:31 Primary Reason for Your Visit: epididymitis Attending Provider: Price Marsh Primary Care Provider: Roland Christianson Consulting Providers: Lisbet Morin Discharge Orders/Prescriptions Prescriptions: New tamsulosin 0.4 mg Capsule 0.4 mg PO DAILY@1730 30 Days Qty: 30 2RF levofloxacin 500 mg tablet 500 mg PO DAILY 7 Days Qty: 7 0RF naproxen 500 mg tablet 500 mg PO BID 7 Days Qty: 14 0RF Continued atorvastatin 40 mg tablet 40 mg PO QHS donepezil 10 mg tablet 10 mg PO QHS lisinopril 10 mg tablet 10 mg PO DAILY memantine 5 mg tablet 5 mg PO QHS Referrals / Follow Up: Roland Christianson MD [Primary Care Provider] - Disposition Disposition (needs filled in before D/C Order can be placed): Home, Self Care
--- NOTE | 2023-11-14 09:56 | DS.PCM_ITS ---
Providers Date of Admission: 11/12/23 Date of Discharge: 11/14/23 Primary Care Physician: Dr. Roland Christianson MD Reason For Visit: EPIDIDYMITIS Diagnosis Discharge Diagnosis (1) Acute epididymitis: Status: Acute Code(s): N45.1 - Epididymitis (2) Acute UTI: Status: Acute Code(s): N39.0 - Urinary tract infection, site not specified (3) Anemia: Status: Acute Code(s): D64.9 - Anemia, unspecified Medications at Discharge Home Medications atorvastatin 40 mg tablet 40 mg PO QHS 11/12/23 donepezil 10 mg tablet 10 mg PO QHS 11/12/23 lisinopril 10 mg tablet 10 mg PO DAILY 11/12/23 memantine 5 mg tablet 5 mg PO QHS 11/12/23 levofloxacin 500 mg tablet 500 mg PO DAILY 7 days #7 tabs 11/14/23 naproxen 500 mg tablet 500 mg PO BID 7 days #14 tabs 11/14/23 tamsulosin 0.4 mg capsule 0.4 mg PO DAILY@1730 30 days #30 caps 11/14/23 Hospital Course Operations None Procedures - (CT abdomen pelvis with IV contrast, testicular ultrasound) Summary of Care Provided Minutes Spent on Discharge: 35 Hospital Course: Patient is a 68-year-old male who presented [facility] ED on 11/12/2023 with worsening left scrotal pain. Hospital course as noted below. Patient discharged home with no therapy needs in stable condition on . Acute left sided epididymitis, concern for UTI, presumed BPH with obstructive symptoms, small left hydrocele Presented with worsening left-sided scrotal pain and swelling. CT abdomen pelvis with IV contrast showed diffuse fluid noted in the scrotum, enlarged prostate impinging upon the inferior bladder, otherwise nonacute. Testicular ultrasound showed hyperemia on left epididymis suggesting epididymitis, normal testicles, small left hydrocele. WBC count 22 on admit, otherwise afebrile and hemodynamically stable on room air. UA showed 500 leukocyte esterase, negative nitrates, 1+ bacteria. Urine culture grew 1-10K pansensitive E coli. Blood cultures negative. Patient notably not sexually active, STI testing not done. ? Patient had significant improvement on IV ceftriaxone and IV Toradol. Disc harged on Levaquin 500 mg daily to complete a 10-day course of antibiotics total. Also prescribed a 7-day course of naproxen 500 mg twice daily on discharge. Started tamsulosin for presumed BPH during hospitalization, will continue on discharge. Recommend outpatient follow-up with PCP in the next few weeks to ensure resolution. 2. Anemia ? Hemoglobin 12.3 on admit, stable between 11.5 and 12. Studies showed very mild iron deficiency anemia. Outpatient follow-up. Chronic medical conditions: ? Obesity: BMI 30 on admit. Encouraged lifestyle modifications. Complicated hospital course, care and prognosis. ? Mild dementia: Stable. Continue home donepezil and memantine. ? Hyperlipidemia: Continue home atorvastatin. ? Hypertension: Continue home lisinopril. Total clinical time spent by myself addressing the patient's medical issues, reviewing all the data, and collaborating with patient's care team: 35 minutes. Physical Exam Const alert, oriented x3 and no apparent distress Constitutional Narrative: Pleasant elderly male, obese, sitting up comfortably in bed, conversing normally, no acute distress. General Appearance: cooperative HEENT normocephalic, head/scalp atraumatic, hearing grossly normal bilaterally, nasal mucous membranes and turbinates normal and moist oral mucous membranes Eyes PERRL, EOMs intact bilaterally and conjunctivae normal Neck full ROM Chest inspection of chest normal Resp normal respiratory effort, normal air movement, no use of accessory muscles and clear to auscultation bilaterally Cardio regular rate, regular rhythm, no murmurs and peripheral pulses 2+ throughout GI normal to inspection, nondistended, normoactive bowel sounds, soft to palpation, non-tender and non-distended Narrative: Left testicle swelling and scrotal swelling moderately improved from admission. Scrotal erythema also significantly improved from admission. Back/Spine normal ROM Extremity normal to inspection, full ROM and no pedal edema Skin no rashes or lesions noted Neuro no focal motor deficits and no sensory deficits noted Speech: speech normal Psych mental status grossly normal Weight / BMI Weight Weight: 100.516 kg Body Mass Index (BMI) 30.0 ABG / Lab / Microbiology Data 11/14/23 06:58 11/14/23 06:58 Laboratory: Laboratory Results - last 24 hr 11/12/23 12:42: Diff Path Review Reviewed 11/13/23 05:40: Diff Path Review Reviewed, Iron 18 L, TIBC 292, Iron Saturation 6.2 L, Ferritin 240, Vitamin B12 252, Folate 20.30 11/14/23 06:58: WBC 16.3 H, RBC 4.17 L, Hgb 11.8 L, Hct 36.1 L, MCV 86.6, MCH 28.3, MCHC 32.7, RDW Std Deviation 41.3, RDW Coeff of Leila 13.2, Plt Count 262, MPV 8.4, Sodium 138, Potassium 4.0, Chloride 108 H, Carbon Dioxide 24.0, Anion Gap 6, BUN 22 H, Creatinine 0.76, Estim Creat Clear Calc 109.96, Est GFR (MDRD) Af Amer 132, Est GFR (MDRD) Non-Af 109, BUN/Creatinine Ratio 29.1 H, Glucose 103, Calcium 9.3 Microbiology: Microbiology 11/12/23 15:35 Blood Culture (Wb) - Right Hand Blood Culture - Preliminary No growth in 48 hours. 11/12/23 15:15 Blood Culture (Wb) - Anticubital Left Blood Culture - Preliminary No growth in 48 hours. 11/12/23 12:50 Urine, Clean Catch Urine Culture - Final Presumptive E. coli D/C Instructions Discharge Diet: No restrictions Weight Bearing Status: Full weight bearing Meaningful Use Info Meaningful Use Diagnoses (Choose all that apply): None applicable Discharge Plan Admission Admit Date/Time: 11/13/23 15:31 Primary Reason for Your Visit: epididymitis Attending Provider: Price Marsh Primary Care Provider: Roland Christianson Consulting Providers: Lisbet Morin Discharge Orders/Prescriptions Prescriptions: New tamsulosin 0.4 mg Capsule 0.4 mg PO DAILY@1730 30 Days Qty: 30 2RF levofloxacin 500 mg tablet 500 mg PO DAILY 7 Days Qty: 7 0RF naproxen 500 mg tablet 500 mg PO BID 7 Days Qty: 14 0RF Continued atorvastatin 40 mg tablet 40 mg PO QHS donepezil 10 mg tablet 10 mg PO QHS lisinopril 10 mg tablet 10 mg PO DAILY memantine 5 mg tablet 5 mg PO QHS Referrals / Follow Up: Roland Christianson MD [Primary Care Provider] - Disposition Disposition (needs filled in before D/C Order can be placed): Home, Self Care Charges/Coding Visit Charges Inpatient E&M: 71808 Disch Hosp >30min
--- NOTE | 2023-11-14 11:11 | PHA.DC_ITS ---
Pharmacy [facility] has performed discharge medication reconciliation and counseling for this patient. 1. LEVOFLOXACIN 500MG PO DAILY X 7 DAYS 2. NAPROXEN 500MG PO BID X 7 DAYS 3. TAMSULOSIN 0.4MG PO DAILY The patient's discharge medication list was reviewed for discrepancies and discrepancies were resolved. The patient was counseled on the following discharge medications and changes in medications for homegoing were reviewed. The Reason for Use, instructions for use, and potential side effects were reviewed for all new medications. The patient's questions regarding all of their medications were answered. The patient was able to verbally demonstrate an understanding of their discharge medications. Medications at Discharge Home Medications atorvastatin 40 mg tablet 40 mg PO QHS 11/12/23 donepezil 10 mg tablet 10 mg PO QHS 11/12/23 lisinopril 10 mg tablet 10 mg PO DAILY 11/12/23 memantine 5 mg tablet 5 mg PO QHS 11/12/23 levofloxacin 500 mg tablet 500 mg PO DAILY 7 days #7 tabs 11/14/23 naproxen 500 mg tablet 500 mg PO BID 7 days #14 tabs 11/14/23 tamsulosin 0.4 mg capsule 0.4 mg PO DAILY@1730 30 days #30 caps 11/14/23
== END 2023-11-14 11:35 | disposition home or self-care (01) | DRG 728 ==
LOC: ED 16:14 → MS3 17:09
PROVIDERS: Nurse Practitioner; Admitting Provider Internal Medicine; Emergency Provider Student in an Organized Health Care Education/Training Program; PCP Internal Medicine; Visit Provider Hospitalist
DX: N45.1 Epididymitis (principal); N13.8 Other obstructive and reflux uropathy; N39.0 Urinary tract infection, site not specified; F03.A0 Unspecified dementia, mild, without behavioral disturbance, psychotic disturbance, mood disturbance, and anxiety; I10 Essential (primary) hypertension; D50.9 Iron deficiency anemia, unspecified; E78.00 Pure hypercholesterolemia, unspecified; E66.9 Obesity, unspecified; B96.20 Unspecified Escherichia coli [E. coli] as the cause of diseases classified elsewhere; N43.3 Hydrocele, unspecified; N40.1 Benign prostatic hyperplasia with lower urinary tract symptoms; Z68.30 Body mass index [BMI] 30.0-30.9, adult; Z79.899 Other long term (current) drug therapy
CPT/HCPCS: 36415; 74177; 76870; 80048; 80053; 81001; 82607; 82728; 82746; 83540; 83550; 83605; 85025; 85027; 87040; 87086; 87088; 87186; 93976; 99284; J7040; J7050; Q9967; A4216